=== PATIENT | male | born 1985 | race African-American/Black ===

== ENCOUNTER 2017-05-14 17:36 | Emergency (ER) | payer OTHER ==
[2017-05-14 18:58] VITALS: BP 113/74
[2017-05-14] MEDS ORDERED: Albuterol 6.7 GM Inhaler INH ONE ×2 (20:57)
--- NOTE | 2017-05-14 21:01 | EDM.PDOC ---
ED HPI GENERAL MEDICAL PROBLEM - General Chief Complaint: General Stated Complaint: HARD TIME BREATHING [id number] Time Seen by Provider: 05/14/17 19:10 Source of Information: Reports: Patient History Limitations: Reports: No Limitations - History of Present Illness INITIAL COMMENTS - FREE TEXT/NARRATIVE: c/o fever, sore throat , body aches for past 4 days. Has not taken anything for discomfort. Unsure of temperature with fever. Throat Pain Score (Numeric/FACES): 9 - Related Data Allergies Allergy/AdvReac Type Severity Reaction Status Date / Time aspirin Allergy Other Verified 05/14/17 18:30 Home Meds: Home Meds . [No Known Home Meds] 05/14/17 [History] Past Medical History Gastrointestinal History: Reports: GERD - Infectious Disease History Infectious Disease History: Reports: Chicken Pox - Past Surgical History GI Surgical History: Reports: Appendectomy Social & Family History - Family History Family Medical History: Noncontributory - Tobacco Use Smoking Status *Q: Never Smoker - Caffeine Use Caffeine Use: Reports: Tea - Recreational Drug Use Recreational Drug Use: No ED ROS GENERAL - Review of Systems Review Of Systems: See Below Constitutional: Reports: No Symptoms. Denies: Fever HEENT: Reports: Throat Pain. Denies: Ear Pain Respiratory: Reports: Shortness of Breath (with activity), Cough GI/Abdominal: Reports: No Symptoms Musculoskeletal: Reports: No Symptoms Skin: Reports: No Symptoms Neurological: Reports: No Symptoms Psychiatric: Reports: No Symptoms ED EXAM, GENERAL - Physical Exam Exam: See Below Exam Limited By: No Limitations General Appearance: Alert, No Apparent Distress Eye Exam: Bilateral Eye: EOMI Ears: Normal External Exam Nose: Normal Inspection Throat/Mouth: Inflammation Head: Atraumatic Neck: Normal Inspection Respiratory/Chest: No Respiratory Distress Cardiovascular: Normal Peripheral Pulses, Regular Rate, Rhythm GI/Abdominal: Normal Bowel Sounds Extremities: Normal Inspection, Normal Range of Motion Neurological: Alert, Oriented, Normal Cognition Course - Vital Signs Last Recorded V/S: Last Vital Signs Temp 97.8 F 05/14/17 18:27 Pulse 77 05/14/17 18:27 Resp 16 05/14/17 18:27 BP 113/74 05/14/17 18:27 Pulse Ox 99 05/14/17 18:27 - Orders/Labs/Meds Meds: Medications Discontinued Medications Generic Name Dose Route Start Last Admin Trade Name Freq PRN Reason Stop Dose Admin Albuterol Confirm 05/14/17 20:57 Proventil Hfa Administered 05/14/17 20:58 Dose 6.7 gm INH .STK-MED ONE Albuterol 6.7 gm 05/14/17 20:57 Proventil Hfa INH 05/14/17 20:58 .STK-MED ONE - Radiology Interpretation Free Text/Narrative:: cxr negative Departure - Departure Time of Disposition: 20:58 Disposition: Home, Self-Care 01 Condition: Good Clinical Impression: URI (upper respiratory infection) Qualifiers: URI type: unspecified viral URI Qualified Code(s): J06.9 - Acute upper respiratory infection, unspecified; B97.89 - Other viral agents as the cause of diseases classified elsewhere - Discharge Information Instructions: Upper Respiratory Infection, Adult, [id number] Forms: ED Department Discharge Additional Instructions: tylenol 650mg every 4 hours as needed for discomfort, sore throat increase fluid intake albuterol inhaler 2 puffs every 4 hours as needed if cough/ difficulty breathing recheck clinic next week if not improving. Strep test negative for strep throat chest xray no obvious pneumonia. Avoid ibuprofen if history of reflux disease
== END 2017-05-14 21:04 | disposition home or self-care (01) ==
LOC: DL.ED 17:36
DX: J06.9 Acute upper respiratory infection, unspecified (principal); B97.89 Other viral agents as the cause of diseases classified elsewhere; K21.9 Gastro-esophageal reflux disease without esophagitis; Z90.49 Acquired absence of other specified parts of digestive tract; Z88.6 Allergy status to analgesic agent
CPT/HCPCS: 71020; 87081; 87430; 99283; A9270